=== PATIENT | female | born 1955 | race Two or more races ===

== ENCOUNTER → 2022-02-25 | Emergency (ER) | payer OTHER ==
[~2022-02-25] VITALS: Ht 154.9 cm; Wt 65.8 kg
[~2022-02-25] MED LIST: KETOROLAC TROMETHAMINE INJ 30 MG/ML VIAL IM ONE; KETOROLAC TROMETHAMINE INJ 30 MG/ML VIAL ONE; LIDO30AD10 TP
--- NOTE | 2022-02-25 12:43 | NUR ---
CALLED TO TRIAGE,NO ANSWER
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
--- NOTE | 2022-02-25 15:01 | NUR ---
X RAY AT BEDSIDE
[2022-02-25] MEDS: LIDOCAINE 5% (PATCH) 1 EA PATCH TP SCH ×2 (15:07→15:13)
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
[2022-02-25 16:23] VITALS: BP 139/66
== END | disposition home or self-care (01) ==
LOC: ER 12:56
DX: M25.511 Pain in right shoulder (principal); E03.9 Hypothyroidism, unspecified; Z88.8 Allergy status to other drugs, medicaments and biological substances
CPT/HCPCS: 99284; 71045; 96372; 93005; 73030; J1885